=== PATIENT | male | born 1935 | race African-American/Black ===

== ENCOUNTER 2019-09-19 00:55 | Emergency (ER) | payer OTHER ==
[~2019-09-19] VITALS: Ht 170.2 cm; Wt 65.0 kg
[2019-09-19] MEDS ORDERED: CLONIDINE 0.2MG TABLET PO ONE (02:30)
[2019-09-19 02:35] LABS: HEMATOCRIT. 37.9 % (42.0-52.0); HEMOGLOBIN. 12.6 g/dL (14.0-18.0); MEAN CORPUSCULAR HEMOGLOBIN 29.5 pg (28.0-32.0); MEAN CORPUSCULAR VOLUME 88.7 fL (80.0-94.0); PLATELET 141 x1000/uL (130-400); RED BLOOD CELL COUNT 4.27 mill/uL (4.7-6.1); RED CELL DISTRIBUTION WIDTH 14.8 % (11.6-14.6)
[2019-09-19 02:39] LABS: CHLORIDE 108 mEq/L (98-107)
[2019-09-19 03:02] LABS: D-DIMER 2.47 mg/L FEU (<0.50); PARTIAL THROMBOPLASTIN TIME 28.1 sec (23.4-31.0); PROTHROMBIN TIME 10.6 sec (9.6-11.0)
[2019-09-19] MEDS ORDERED: CLONIDINE 0.1MG TABLET PO ONE (05:15)
[2019-09-19] MEDS ORDERED: IOHEXOL-350 100 ML BOTTLE ONE (06:43)
[2019-09-19] MEDS ORDERED: LEVOFLOXACIN 750MG PREMIX 150 ML IV ONE (06:45)
[2019-09-19 07:06] LABS: CLARITY URINE CLEAR (CLEAR); COLOR URINE YELLOW (YELLOW); KETONES URINE NEGATIVE (NEGATIVE); LEUKOCYTE ESTERASE URINE NEGATIVE (NEGATIVE); NITRITE URINE NEGATIVE (NEGATIVE); OCCULT BLOOD URINE NEGATIVE (NEGATIVE); PROTEIN URINE NEGATIVE (NEGATIVE); SPECIFIC GRAVITY URINE 1.008 (1.005-1.030); UROBILINOGEN URINE 0.2 E.U./dL (0.2-1.0)
[2019-09-19 08:35] VITALS: BP 154/66
[2019-09-19 08:47] LABS: PLATELET ESTIMATE NORMAL
== END 2019-09-19 08:36 | disposition short-term general hospital (02) ==
LOC: ER 00:55
DX: R07.9 Chest pain, unspecified (principal); I10 Essential (primary) hypertension; E78.00 Pure hypercholesterolemia, unspecified
CPT/HCPCS: 36415; 71045; 71275; 80053; 81003; 83605; 83880; 84484; 85025; 85379; 85610; 85730; 87040; 87086; 93005; 96365; 99285; J1956; Q9967